=== PATIENT | male | born 1990 | race Hispanic/Latino ===

== ENCOUNTER 2020-10-30 19:40 | Emergency (ER) | payer SELFPAY ==
[~2020-10-30] VITALS: Ht 167.6 cm; Wt 99.8 kg
[2020-10-30 20:30] VITALS: BP 135/89
[2020-10-30] MEDS ORDERED: NACL 0.9% 1000ML 1,000 ML IV SCH (21:00)
[2020-10-30] MEDS ORDERED: MORPHINE 4 MG SYG IVP SCH (21:00)
[2020-10-30] MEDS ORDERED: ONDANSETRON 4MG INJ IVP SCH (21:00)
[2020-10-30 21:09] LABS: BASOPHILS % (AUTO) 0.2 % (0.0-5.0); EOSINOPHILS % (AUTO) 1.5 % (0.0-8.0); HEMATOCRIT 42.7 % (42-54); LYMPHOCYTES % (AUTO) 11.8 % (21.0-51.0); MEAN CORPUSCULAR HEMOGLOBIN 28.3 pg (27.0-33.0); MEAN CORPUSCULAR HGB CONC 33.5 g/dL (32.0-36.0); MEAN CORPUSCULAR VOLUME 84.4 fL (79-99); MONOCYTES % (AUTO) 4.8 % (3.0-13.0); NEUTROPHILS % (AUTO) 81.2 % (40.0-77.0); PLATELET COUNT (AUTO) 225 K/uL (130-400); RED BLOOD CELL COUNT(AUTO) 5.06 MIL/uL (4.50-6.20); RED CELL DISTRIBUTION WIDTH 12.9 % (11.0-15.5); WHITE BLOOD COUNT (AUTO) 13.3 K/uL (4.8-10.8)
[2020-10-30 21:21] LABS: CREATININE 1.3 mg/dL (0.5-1.5)
[2020-10-30 21:26] LABS: ALBUMIN 3.7 g/dL (3.5-5.0); BILIRUBIN,TOTAL 0.2 mg/dL (0.2-1.0); TOTAL PROTEIN, SERUM 7.8 g/dL (6.0-8.3)
[2020-10-30 21:30] VITALS: BP 143/84
[2020-10-30 22:20] LABS: APPEARANCE,URINE Clear (CLEAR); BILIRUBIN,URINE Negative (NEGATIVE); COLOR,URINE Yellow (YELLOW); GLUCOSE, URINE (UA) Negative (NEGATIVE); KETONES,URINE Negative (NEGATIVE); LEUKOCYTE ESTERASE ,URINE Negative (NEGATIVE); NITRATE,URINE Negative (NEGATIVE); OCCULT BLOOD,URINE Large (NEGATIVE); PROTEIN,URINE Negative (NEGATIVE); UROBILINOGEN,URINE 0.2 mg/dL (0.2-1.0)
[2020-10-30 22:30] VITALS: BP 134/74
[2020-10-30 22:36] LABS: BACTERIA,URINE Few /HPF (None Seen); WBC,URINE 0-1 /HPF (0-1)
[2020-10-30 22:37] LABS: MUCUS,URINE Rare LPF (None Seen); SQUAMOUS EPITHELIAL CELL,UR 0-2 /HPF (0-2)
[2020-10-30] MEDS ORDERED: TAMSULOSIN HCL 0.4 MG CAP.ER.24H PO SCH (23:15)
[2020-10-30] MEDS ORDERED: KETOROLAC 30MG VIAL (30MG/ML) IV ONE (23:15)
[2020-10-30 23:30] VITALS: BP 128/76
[2020-10-31] MEDS ORDERED: IBUP-2070 PO (01:56)
[2020-10-31] MEDS ORDERED: ACET1TAB25 PO (01:56)
[2020-10-31] MEDS ORDERED: ONDA4TAB4 PO (01:56)
[2020-10-31 02:00] VITALS: BP 115/68
== END 2020-10-31 02:26 | disposition admitted as inpatient to this hospital (09) ==
LOC: EDH 19:40
DX: N20.1 Calculus of ureter (principal); Z79.899 Other long term (current) drug therapy
CPT/HCPCS: 36415; 74176; 80053; 81001; 85025; 96361; 96374; 96375; 99285; J1885; J2270; J2405; J7030